=== PATIENT | male | born 1970 | race Caucasian/White ===

== ENCOUNTER 2023-01-06 10:13 | Emergency (ER) | payer OTHER ==
[~2023-01-06] VITALS: Ht 188 cm; Wt 90.7 kg
[2023-01-06 12:43] VITALS: BP 171/93
[2023-01-06] MEDS ORDERED: METPRE4DP PO (13:02)
[2023-01-06] MEDS ORDERED: CYCL10 PO (13:02)
[2023-01-06] MEDS ORDERED: Norco 5-325 Ta1 EACH PO (13:02)
== END 2023-01-06 13:20 | disposition home or self-care (01) ==
LOC: ER 10:13
DX: M54.2 Cervicalgia (principal); Z88.5 Allergy status to narcotic agent
CPT/HCPCS: 72040; 96372; 99283-25; A9270; J1885

== ENCOUNTER → 2023-01-14 | Outpatient (CLI) | payer OTHER ==
[~2023-01-14] MED LIST: CYCL10 PO; METPRE4DP PO; Norco 5-325 Ta1 EACH PO
[2023-01-14 14:52] LABS: Free Thyroxine 1.05 ng/dL (0.70-1.60); Thyroid Stimulating Hormone 2.727 uIU/mL (0.360-4.800)
== END ==
LOC: LAB SHORT 14:25 → LAB 14:25
PROVIDERS: Family Medicine
DX: E04.1 Nontoxic single thyroid nodule (principal)
CPT/HCPCS: 84439; 84443; 84481

== ENCOUNTER 2023-04-02 22:51 | Emergency (ER) | payer OTHER ==
[~2023-04-02] VITALS: Ht 188 cm; Wt 90.7 kg
[2023-04-02] MEDS ORDERED: DIAZ2 PO (23:51)
[2023-04-03] MEDS ORDERED: FentaNYL Citrate 50 MCG/ML 2 ML Injection IV ONE (00:10)
[2023-04-03] MEDS ORDERED: Lidocaine 4% 1 Patch TOP ONE (00:10)
[2023-04-03] MEDS ORDERED: Ketorolac Tromethamine 30mg Vial IV ONE (00:10)
[2023-04-03 02:16] VITALS: BP 149/84
== END 2023-04-03 02:18 | disposition home or self-care (01) ==
LOC: ER 22:51
DX: M54.12 Radiculopathy, cervical region (principal); Z79.899 Other long term (current) drug therapy; Z88.5 Allergy status to narcotic agent; X50.9XXA Other and unspecified overexertion or strenuous movements or postures, initial encounter
CPT/HCPCS: 96374; 96375; 99283-25; A9270; J1885; J3010

== ENCOUNTER 2023-11-29 20:22 | Emergency (ER) | payer OTHER ==
[~2023-11-29] VITALS: Ht 188 cm; Wt 90.7 kg
[~2023-11-29 20:22] MED LIST changes: +AMOCLA875 PO; +DIAZ2 PO
[2023-11-29 20:27] VITALS: BP 171/81
[2023-11-29 21:07] LABS: BASOPHILS ABSOLUTE AUTO 0.09 K/mm3 (0.00-0.23); BASOPHILS PERCENT AUTO 1 % (0-2); EOSINOPHILS ABSOLUTE AUTO 0.28 K/mm3 (0.00-0.68); EOSINOPHILS PERCENT AUTO 2 % (0-6); Hematocrit 41.7 % (37.0-53.0); Hemoglobin 14.1 g/dL (13.5-17.5); IMMATURE GRAN ABSOLUTE AUTO 0.03 K/mm3 (0.00-0.10); IMMATURE GRAN PERCENT AUTO 0 % (0-1); LYMPHOCYTES ABSOLUTE AUTO 5.22 K/mm3 (0.84-5.20); LYMPHOCYTES PERCENT AUTO 45 % (21-46); MONOCYTES PERCENT AUTO 10 % (4-13); Mean Corpuscular HGB 29.4 pg (26.0-34.0); Mean Corpuscular HGB Conc 33.8 g/dL (31.5-36.5); Mean Corpuscular Volume 87 fL (80-100); Mean Platelet Volume 9.9 fL (9.1-12.4); NEUTROPHILS ABSOLUTE AUTO 4.77 K/mm3 (1.96-9.15); NEUTROPHILS PERCENT AUTO 42 % (41-73); Platelet Count 227 K/mm3 (150-400); RDW Coefficient Variation 12.5 % (11.7-14.2); RDW Standard Deviation 39.8 fL (35.1-46.3); Red Blood Cell Count 4.79 M/mm3 (4.30-5.90); White Blood Cell Count 11.49 K/mm3 (4.00-11.30)
[2023-11-29 21:25] LABS: Albumin, Blood 3.7 g/dL (3.4-5.0); Albumin/Globulin Ratio 0.9 (0.8-1.8); Bilirubin, Total 0.3 mg/dL (0.1-1.0); Bun/Creatinine Ratio 23.5 (12.0-20.0); Calcium, Blood 8.8 mg/dL (8.5-10.1); Creatinine, Blood 0.98 mg/dL (0.60-1.20); Globulin, Blood 3.9 g/dL (2.2-4.0); Potassium, Blood 3.7 mmol/L (3.5-5.5); Total Protein, Blood 7.6 g/dL (6.4-8.2)
[2023-11-29 21:26] LABS: International Normalized Ratio 0.95; Prothrombin Time Results 10.2 Sec (9.7-11.5)
== END 2023-11-30 01:12 | disposition left against medical advice (07) ==
LOC: ER 20:22
PROVIDERS: Emergency Medicine
DX: J02.9 Acute pharyngitis, unspecified (principal); R06.00 Dyspnea, unspecified; R22.1 Localized swelling, mass and lump, neck; Z53.21 Procedure and treatment not carried out due to patient leaving prior to being seen by health care provider
CPT/HCPCS: 36415; 80053; 83605; 85025; 85610; 87040; 93005; 93010

== ENCOUNTER 2024-03-19 07:59 | Day surgery (SDC) | payer OTHER | END 2024-03-19 23:00 | disposition home or self-care (01) | LOC: CT 07:59 | DX: R07.89 Other chest pain (principal); I10 Essential (primary) hypertension | CPT/HCPCS: 75574; Q9967 ==

== ENCOUNTER 2024-11-14 01:44 | Emergency (ER) | payer OTHER, MEDICARE ==
[~2024-11-14] VITALS: Ht 185.4 cm; Wt 90.7 kg
[2024-11-14 02:58] LABS: BASOPHILS ABSOLUTE AUTO 0.08 K/mm3 (0.00-0.23); BASOPHILS PERCENT AUTO 1 % (0-2); EOSINOPHILS ABSOLUTE AUTO 0.17 K/mm3 (0.00-0.68); EOSINOPHILS PERCENT AUTO 2 % (0-6); Hematocrit 39.7 % (37.0-53.0); Hemoglobin 13.9 g/dL (13.5-17.5); IMMATURE GRAN ABSOLUTE AUTO 0.02 K/mm3 (0.00-0.10); IMMATURE GRAN PERCENT AUTO 0 % (0-1); LYMPHOCYTES ABSOLUTE AUTO 4.37 K/mm3 (0.84-5.20); LYMPHOCYTES PERCENT AUTO 42 % (21-46); MONOCYTES ABSOLUTE AUTO 1.05 K/mm3 (0.16-1.47); MONOCYTES PERCENT AUTO 10 % (4-13); Mean Corpuscular HGB Conc 35.0 g/dL (31.5-36.5); Mean Corpuscular Volume 85 fL (80-100); NEUTROPHILS ABSOLUTE AUTO 4.72 K/mm3 (1.96-9.15); NEUTROPHILS PERCENT AUTO 45 % (41-73); NRBC ABSOLUTE 0.00 K/mm3 (0.00-0.02); NRBC Auto 0.0 /100 WBC (0.0-0.2); Platelet Count 262 K/mm3 (150-400); RDW Coefficient Variation 13.0 % (11.7-14.2); RDW Standard Deviation 40.0 fL (35.1-46.3)
[2024-11-14 03:35] LABS: Magnesium, Blood 2.2 mg/dL (1.6-2.4)
[2024-11-14 03:37] LABS: Albumin, Blood 3.6 g/dL (3.4-5.0); Albumin/Globulin Ratio 1.0 (0.8-1.8); Anion Gap 10.0 mmol/L (3-11); Aspartate Aminotrans (AST/SGOT 25.0 U/L (12-37); Bilirubin, Total 0.4 mg/dL (0.1-1.0); Blood Urea Nitrogen 23.0 mg/dL (8-24); CO2, Blood 25.0 mmol/L (21-32); Calcium, Blood 8.3 mg/dL (8.5-10.1); Chloride, Blood 108.0 mmol/L (98-108); Creatinine, Blood 1.12 mg/dL (0.60-1.20); Globulin, Blood 3.5 g/dL (2.2-4.0); Glucose, Blood 126.0 mg/dL (70-99); Potassium, Blood 3.9 mmol/L (3.5-5.5); Sodium, Blood 139.0 mmol/L (136-145); Total Protein, Blood 7.1 g/dL (6.4-8.2)
[2024-11-14 03:45] VITALS: BP 156/72
[2024-11-14] MEDS ORDERED: CYCL10 PO (04:19)
[2024-11-14 04:25] LABS: Alanine Aminotransfer (ALT/SGP 38.0 U/L (12-78)
[2024-11-14] MEDS ORDERED: RX Prepack 6 Tabs Oxycodone 5mg UD ONE (04:25)
== END 2024-11-14 04:56 | disposition home or self-care (01) ==
LOC: ER 01:44
PROVIDERS: Student in an Organized Health Care Education/Training Program
DX: S16.1XXA Strain of muscle, fascia and tendon at neck level, initial encounter (principal); R07.9 Chest pain, unspecified; W01.0XXA Fall on same level from slipping, tripping and stumbling without subsequent striking against object, initial encounter; Z79.899 Other long term (current) drug therapy; Z88.5 Allergy status to narcotic agent
CPT/HCPCS: 80053; 83735; 84484; 85025; 93005; 93010; 99284-25; A9270